=== PATIENT | male | born 1985 | race Caucasian/White ===

== ENCOUNTER 2016-10-11 15:38 | Emergency (ER) | payer OTHER ==
[2016-10-11 15:44] VITALS: BP 131/91; PULSE 91; TEMP 97.9; BMI 35.4
[2016-10-11] MEDS ORDERED: IBUPROFEN 600 MG TABLET (FP) PO ONE (16:00)
[2016-10-11] MEDS ORDERED: IBUPROFEN 400 MG TABLET (FP) PO ONE (16:04)
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
== END 2016-10-11 16:13 | disposition home or self-care (01) ==
LOC: JER 15:38 → JERFT 15:38
DX: S16.1XXA Strain of muscle, fascia and tendon at neck level, initial encounter (principal); V43.52XA Car driver injured in collision with other type car in traffic accident, initial encounter; Y92.481 Parking lot as the place of occurrence of the external cause; Y99.0 Civilian activity done for income or pay; Y93.89 Activity, other specified
CPT/HCPCS: 99281-25

== ENCOUNTER 2017-12-06 15:06 | Emergency (ER) | payer OTHER ==
--- NOTE | 2017-12-06 15:10 | PDOC ---
Rapid Medical Evaluation Time Seen by Provider: 12/06/17 15:08 Medical Evaluation: Allergies Allergy/AdvReac Type Severity Reaction Status Date / Time No Known Allergies Allergy Verified 10/11/16 15:38 12/06/17 15:08 I have performed a brief in-person evaluation of this patient. 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 Discharge Disposition - Diagnosis Back pain Qualifiers: Back pain location: back pain in other location Chronicity: acute Qualified Code(s): M54.9 - Dorsalgia, unspecified - Referrals - Patient Instructions - Post Discharge Activity
[2017-12-06 15:22] VITALS: BP 142/91; PULSE 91; TEMP 98; BMI 33.2
--- NOTE | 2017-12-06 15:41 | PDOC ---
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 He has no radicular symptoms of or loss of bowel of bladder function. 12/06/17 15:38 Past History - Past Medical History Allergies/Adverse Reactions: Allergies Allergy/AdvReac Type Severity Reaction Status Date / Time No Known Allergies Allergy Verified 12/06/17 15:11 Home Medications: Ambulatory Orders Cyclobenzaprine HCl [Flexeril 10 mg] 10 mg PO HS PRN #10 tablet 12/06/17 - Surgical History Lung Surgery: Yes (chest tube) - Suicide/Smoking/Psychosocial Hx Smoking History: Never smoked Have you smoked in the past 12 months: No Information on smoking cessation initiated: No Hx Alcohol Use: No Drug/Substance Use Hx: No Substance Use Type: None Review of Systems - Review of Systems Musculoskeletal: Yes: See HPI, Back Pain *Physical Exam - Vital Signs Last Vital Signs Temp Pulse Resp BP Pulse Ox 98.0 F 91 H 16 142/91 100 12/06/17 15:09 12/06/17 15:09 12/06/17 15:09 12/06/17 15:09 12/06/17 15:09 - Physical Exam Comments: Lumbar spine skin color and temperature are normal range of motion is slightly decreased is mild tenderness and palpable spasm about the right paralumbar musculature. 5 out of 5 strength in bilateral lower extremities without any gross sensorimotor deficits. Negative straight leg raise test bilaterally. Thighs and calves are soft and nontender. Is neurovascularly intact. 12/06/17 15:39 *DC/Admit/Observation/Transfer Diagnosis at time of Disposition: Lumbar strain Back pain Qualifiers: Back pain location: back pain in other location Chronicity: acute Qualified Code(s): M54.9 - Dorsalgia, unspecified - Discharge Dispostion Disposition: HOME Condition at time of disposition: Stable Decision to Admit order: No - Referrals Referrals: Brock Das MD [Staff Physician] - - Patient Instructions Printed Discharge Instructions: Muscle Strain, DI for Muscle Strain Additional Instructions: Return to the emergency room should symptoms worsen or go unresolved. Follow-up with spine surgery for further evaluation and treatment options in 2-3 days. Make Keeshan IV given you is a muscle relaxer which will make you sleepy I will be one tablet before bedtime. - Post Discharge Activity Forms/Work/School Notes: Back to Work
== END 2017-12-06 15:51 | disposition home or self-care (01) ==
LOC: JERFT 15:06
DX: S39.82XA Other specified injuries of lower back, initial encounter (principal); X50.9XXA Other and unspecified overexertion or strenuous movements or postures, initial encounter; Y93.F2 Activity, caregiving, lifting; Y92.89 Other specified places as the place of occurrence of the external cause; Y99.0 Civilian activity done for income or pay
CPT/HCPCS: 99281-25

== ENCOUNTER 2017-12-27 14:35 | Emergency (ER) | payer OTHER ==
[2017-12-27 14:50] VITALS: BP 131/92; PULSE 96; TEMP 98.2; BMI 32.5
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
[2017-12-27] MEDS ORDERED: DIPHTH,PERTUSS(ACELL),TET 0.5 ML DISP.SYRIN IM ONE (14:57)
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
== END 2017-12-27 15:38 | disposition home or self-care (01) ==
LOC: JERFT 14:35
PROC: 3E0234Z Introduction of Serum, Toxoid and Vaccine into Muscle, Percutaneous Approach (ICD-10-PCS; principal; 2017-12-27)
DX: Z77.111 Contact with and (suspected) exposure to water pollution (principal); Y35.891A Legal intervention involving other specified means, law enforcement official injured, initial encounter; Y93.F9 Activity, other caregiving; Y92.59 Other trade areas as the place of occurrence of the external cause; Y99.0 Civilian activity done for income or pay
CPT/HCPCS: 90715; 99281-25

== ENCOUNTER 2018-08-26 14:14 | Emergency (ER) | payer OTHER | END 2018-08-26 15:04 | disposition home or self-care (01) | LOC: JER 14:14 → JERFT 15:04 ==

== ENCOUNTER 2018-11-26 12:33 | Emergency (ER) | payer OTHER ==
[2018-11-26 13:11] VITALS: BP 118/88; PULSE 106; TEMP 98.6; BMI 31.1
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
== END 2018-11-26 14:31 | disposition home or self-care (01) ==
LOC: JERFT 12:33
DX: S60.511A Abrasion of right hand, initial encounter (principal); S60.418A Abrasion of other finger, initial encounter; Y35.891A Legal intervention involving other specified means, law enforcement official injured, initial encounter; Y93.89 Activity, other specified; Y92.89 Other specified places as the place of occurrence of the external cause; Y99.0 Civilian activity done for income or pay
CPT/HCPCS: 99282-25

== ENCOUNTER 2018-12-02 12:02 | Emergency (ER) | payer OTHER ==
[2018-12-02 12:20] VITALS: BP 111/82; PULSE 89; TEMP 98.1; BMI 31.1
[2018-12-02] MEDS ORDERED: TETRACAINE 0.5% OPHTH SOLN 2 ML BOTTLE ONE (12:25)
[2018-12-02] MEDS ORDERED: ERYTHROMYCIN 0.5% OPHTHALMIC OINTMENT 3.5 GM TUBE ONE (12:26)
--- NOTE | 2018-12-02 12:43 | PDOC ---
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 States used an eyewash, swept I number of times but states feels has foreign-body under his right eyelid. Visual acuity has not changed, there is no drainage from eye. Timing/Duration: unsure, 1-3 hours Severity: mild, moderate Associated Symptoms: reports: denies symptoms Past History - Travel Traveled outside of the country in the last 30 days: No Close contact w/someone who was outside of country & ill: No - Past Medical History Allergies/Adverse Reactions: Allergies Allergy/AdvReac Type Severity Reaction Status Date / Time No Known Allergies Allergy Verified 11/26/18 13:09 Home Medications: Ambulatory Orders Erythromycin 0.5% Eye Ointment [Erythromycin 0.5% Eye Ointment -] 1 applic OU TID 5 Days #1 tube 12/02/18 COPD: No - Surgical History Lung Surgery: Yes (chest tube) - Suicide/Smoking/Psychosocial Hx Smoking History: Never smoked Have you smoked in the past 12 months: No Hx Alcohol Use: No Drug/Substance Use Hx: No Substance Use Type: None Review of Systems - Review of Systems Able to Perform ROS?: Yes Is the patient limited Irish proficient: Yes Constitutional: Yes: Symptoms Reported, See HPI. No: Chills HEENTM: Yes: Symptoms Reported, See HPI, Eye Pain, Tearing. No: Recent change in vision Respiratory: No: Symptoms reported All Other Systems: Reviewed and Negative *Physical Exam - Vital Signs Last Vital Signs Temp Pulse Resp BP Pulse Ox 98.1 F 89 20 111/82 100 12/02/18 12:08 12/02/18 12:08 12/02/18 12:08 12/02/18 12:08 12/02/18 12:08 - Physical Exam General Appearance: Yes: Nourished, Appropriately Dressed HEENT: positive: SUNDAY, TMs Normal, Rhinorrhea Neck: positive: Supple. 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 Used a Q-tip to sleep upper eyelid number of occasions with no obvious foreign body extracted. Applied erythromycin ointment was sitting relief and prevention of conjunctivitis and instructed patient follow-up with ophthalmology as soon as possible. *DC/Admit/Observation/Transfer Diagnosis at time of Disposition: Corneal abrasion Qualifiers: Encounter type: initial encounter Laterality: right Qualified Code(s): S05.01XA - Injury of conjunctiva and corneal abrasion without foreign body, right eye, initial encounter - Discharge Dispostion Disposition: HOME Condition at time of disposition: Stable Decision to Admit order: No - Prescriptions Prescriptions: Erythromycin 0.5% Eye Ointment [Erythromycin 0.5% Eye Ointment -] 1 applic OU TID 5 Days #1 tube - Referrals Referrals: Candie Curtis [Primary Care Provider] - - Patient Instructions Printed Discharge Instructions: DI for Corneal Abrasion Additional Instructions: Rest, avoid rubbing eyes Wash hands, use eye drops as directed, wash hands after use May use eye lubricating drops as often as needed erythromycin ointment, one thin film 3 times a day for 5 days Tylenol or ibuprofen for pain relief Avoid contact with others until redness and discharge is gone from eyes. Followup with ophthalmology in one to 2 days for thorough exam Return to emergency department for worsened pain, swelling, vision problems. - Post Discharge Activity Forms/Work/School Notes: Back to Work
== END 2018-12-02 12:59 | disposition home or self-care (01) ==
LOC: JERFT 12:02
PROC: 4A07X0Z Measurement of Visual Acuity, External Approach (ICD-10-PCS; principal; 2018-12-02)
DX: S05.01XA Injury of conjunctiva and corneal abrasion without foreign body, right eye, initial encounter (principal); Y35.891A Legal intervention involving other specified means, law enforcement official injured, initial encounter; Y93.89 Activity, other specified; Y92.89 Other specified places as the place of occurrence of the external cause; Y99.0 Civilian activity done for income or pay
CPT/HCPCS: 99281-25

== ENCOUNTER 2019-04-21 16:41 | Emergency (ER) | payer OTHER ==
[2019-04-21 16:50] VITALS: PULSE 121; TEMP 98; BMI 32.1
[2019-04-21 17:05] VITALS: BP 134/89
[2019-04-21] MEDS ORDERED: HIV POST EXPOSURE PROPHYLAXIS KIT NR ONE (17:24)
[2019-04-21] MEDS ORDERED: AMOX TR/POT CLAV 875MG/125MG TABLETS (FP) PO ONE (17:38)
[2019-04-21] MEDS ORDERED: AMOX TR/POT CLAV 875MG/125MG TABLETS (FP) ONE (17:45)
[2019-04-21] MEDS ORDERED: HIV POST EXPOSURE PROPHYLAXIS KIT PO ONE (17:48)
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
[2019-04-21] MEDS ORDERED: IBUPROFEN 600 MG TABLET (FP) PO ONE ×2 (18:12)
[2019-04-21 18:34] LABS: BASO % 1.1 % (0-2.0); EOS % 0.7 % (0-4.5); HEMOGLOBIN 16.1 GM/dL (11.7-16.9); LYMPH % 26.9 % (8-40); MCH 28.9 pg (25.7-33.7); MCHC 34.2 g/dl (32.0-35.9); MEAN CELL VOLUME 84.5 fl (80-96); MONO % 11.7 % (3.8-10.2); NEUT % 59.6 % (42.8-82.8); PLATELET COUNT 278 K/MM3 (134-434); RBC 5.56 M/mm3 (4.00-5.60); RDW 13.1 % (11.9-15.9); WHITE BLOOD COUNT 6.5 K/mm3 (4.0-10.0)
[2019-04-21 19:04] LABS: ALBUMIN 4.3 g/dl (3.4-5.0); BILIRUBIN,TOTAL 0.4 mg/dL (0.2-1); BLOOD UREA NITROGEN 15.4 mg/dL (7-18); CALCIUM 9.4 mg/dL (8.5-10.1); CREATININE 1.2 mg/dL (0.55-1.3); PHOSPHOROUS 3.1 mg/dL (2.5-4.9); POTASSIUM 4.1 mmol/L (3.5-5.1); URIC ACID 7.2 mg/dL (2.6-7.2)
== END 2019-04-21 18:22 | disposition home or self-care (01) ==
LOC: JERFT 16:41 → JER 16:41 → JERFT 18:22
DX: S61.256A Open bite of right little finger without damage to nail, initial encounter (principal); Y35.891A Legal intervention involving other specified means, law enforcement official injured, initial encounter; Y93.89 Activity, other specified; Y92.238 Other place in hospital as the place of occurrence of the external cause; Y99.0 Civilian activity done for income or pay
CPT/HCPCS: 36415; 73130-TC-RT-FY; 80053; 82465; 82977; 83615; 84100; 84478; 84550; 85025; 86317; 86704; 86706; 86803; 87340; 87389; 99283-25

== ENCOUNTER 2020-08-29 13:31 | Emergency (ER) | payer OTHER ==
[2020-08-29 13:47] VITALS: BP 144/103; PULSE 108; TEMP 98.7; BMI 33.9
[2020-08-29] MEDS ORDERED: IBUPROFEN 600 MG TABLET (FP) PO ONE ×2 (15:23→15:30)
== END 2020-08-29 15:52 | disposition home or self-care (01) ==
LOC: FER 13:31
DX: S50.311A Abrasion of right elbow, initial encounter (principal)
CPT/HCPCS: 71046-TC-FY; 73070-TC-LT-FY; 73130-TC-LT-FY; 99284-25

== ENCOUNTER 2021-07-20 08:55 | Emergency (ER) | payer OTHER ==
[2021-07-20 09:29] VITALS: BP 126/86; PULSE 100; TEMP 98.1; BMI 33.9
== END 2021-07-20 09:38 | disposition home or self-care (01) ==
LOC: FER 08:55
DX: M25.511 Pain in right shoulder (principal)
CPT/HCPCS: 99282-25